=== PATIENT | female | born 2000 | race Two or more races ===

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

== ENCOUNTER 2018-12-07 19:58 | Emergency (ER) | payer OTHER ==
[2018-12-07 20:08] VITALS: BP 123/97
--- NOTE | 2018-12-07 20:59 | UC ---
Lower Extremity/Ankle HPI - HPI Summary HPI Summary: 18-year-old female presents with complaints of left ankle pain and swelling. States approximately 2 weeks ago she was descending some stairs into her ankle gave out on her and she came down on the ankle sideways causing a inversion injury. States she self treated herself for a sprained ankle and was having some improvement and then 5 days ago her ankle gave out on her again causing another inversion injury. She presents today for persistent pain and swelling to the lateral aspect of her left ankle. States she has been able to walk and bear weight on the ankle though with some discomfort. Has taken over-the- counter acetaminophen and iced the injury with some improvement in the symptoms. Denies any numbness or tingling. - History of Current Complaint Chief Complaint: UCLowerExtremity Stated Complaint: ANKLE INJURY Time Seen by Provider: 12/07/18 20:20 Hx Obtained From: Patient Hx Last Menstrual Period: November 09, 2018 Pain Intensity: 5 - Allergies/Home Medications Allergies/Adverse Reactions: Allergies Allergy/AdvReac Type Severity Reaction Status Date / Time No Known Allergies Allergy Verified 12/07/18 20:08 Home Medications: Home Medications NK [No Home Medications Reported] 12/07/18 [History Confirmed 12/07/18] PMH/Surg Hx/FS Hx/Imm Hx Previously Healthy: Yes Other History Of: Negative For: Anticoagulant Therapy - Surgical History Surgical History: None Surgery Procedure, Year, and Place: Appendectomy - Family History Known Family History: Positive: Cardiac Disease - grandmother and grandfather had CAD, HLD, grandfather had cardiomeagly, Hypertension - maternal grandmother and grandfather, Diabetes - maternal grandmother and grandfather, Other - maternal grandfather had CVA - Social History Occupation: Student Lives: With Family Alcohol Use: None Substance Use Type: None Smoking Status (MU): Never Smoked Tobacco - Immunization History Most Recent Influenza Vaccination: not this year Most Recent Pneumonia Vaccination: never Review of Systems All Other Systems Reviewed And Are Negative: Yes Constitutional: Positive: Negative Skin: Negative: Bruising Respiratory: Positive: Negative Cardiovascular: Positive: Negative Gastrointestinal: Positive: Negative Genitourinary: Positive: Negative Motor: Negative: Weakness Neurovascular: Negative: Decreased Sensation Musculoskeletal: Positive: Other: - See HPI Neurological: Positive: Negative Is Patient Immunocompromised?: No Physical Exam - Summary Physical Exam Summary: GENERAL APPEARANCE: Well developed, well nourished, alert and cooperative, and appears to be in no acute distress. CARDIAC: Normal S1 and S2. No S3, S4 or murmurs. Rhythm is regular. There is no peripheral edema, cyanosis or pallor. Extremities are warm and well perfused. Capillary refill is less than 2 seconds. Peripheral pulses intact. LUNGS: Clear to auscultation without rales, rhonchi, wheezing or diminished breath sounds. ABDOMEN: Positive bowel sounds. Soft, nondistended, nontender. No guarding or rebound. No masses or hepatosplenomegally. MUSKULOSKELETAL: Normal muscular development. Limping gait. EXTREMITIES: Tenderness and swelling over the left lateral malleolus without gross deformity or ecchymosis. No laxity noted. Circulation and sensation intact. SKIN: Skin normal color, texture and turgor with no lesions or eruptions. Triage Information Reviewed: Yes Vital Signs: Initial Vital Signs Temp 98.1 F 12/07/18 20:05 Pulse 100 12/07/18 20:05 Resp 16 12/07/18 20:05 BP 123/97 12/07/18 20:05 Pulse Ox 100 12/07/18 20:05 Vital Signs Reviewed: Yes Diagnostics - Radiology No standard instances Radiology Interpretation Completed By: ED Physician - No fracture or dislocation. Lower Extremity Course/Dx - Course Course Of Treatment: 18-year-old female presents with complaints of left ankle pain and swelling. States approximately 2 weeks ago she was descending some stairs into her ankle gave out on her and she came down on the ankle sideways causing a inversion injury. States she self treated herself for a sprained ankle and was having some improvement and then 5 days ago her ankle gave out on her again causing another inversion injury. She presents today for persistent pain and swelling to the lateral aspect of her left ankle. States she has been able to walk and bear weight on the ankle though with some discomfort. Has taken over-the- counter acetaminophen and iced the injury with some improvement in the symptoms. Denies any numbness or tingling. Afebrile. Vital signs stable. Patient had tenderness and swelling over the left lateral malleolus without gross deformity or ecchymosis. No laxity noted. Circulation and sensation intact. Exam was unremarkable. My preliminary reading of the ankle x-ray showed no acute fracture or dislocation. Will treat for a left ankle sprain. Patient was placed in a CAM boot by the RN. Circulation sensation were intact pre-and post-application. Recommending weightbearing as tolerated, over-the- counter analgesics, and RICE. She is to follow-up with orthopedic surgery in 5- 7 days for evaluation and treatment. Anticipatory guidance and warning symptoms were reviewed with the patient. Verbalizes understanding and agrees with plan of care. - Differential Dx/Diagnosis Differential Diagnosis/HQI/PQRI: Dislocation, Fracture (Closed), Sprain Provider Diagnosis: Left ankle sprain Discharge - Sign-Out/Discharge Documenting (check all that apply): Patient Departure All imaging exams completed and their final reports reviewed: No - Discharge Plan Condition: Stable Disposition: HOME Patient Education Materials: Ankle Sprain (ED) Referrals: Andres Smith NP [Primary Care Provider] - Sarah Rivera MD [Medical Doctor] - 5 Days Additional Instructions: The x-ray performed in the clinic today showed no evidence of a fracture. The x- ray will be reviewed by the radiologist tomorrow and we will contact you if they see anything that changes the plan of care. Rest the ankle as much as possible. You may walk and bear weight as tolerated. Use the CAM boot that was provided you. You may remove to shower and sleep but should wear at all other times. Apply ice to the affected area for 15-20 minutes at least 4 times a day to help with the pain and swelling. Elevate the leg to help reduce swelling. Take acetaminophen (Tylenol) or ibuprofen (Advil, Motrin) according to directions as needed for pain. Follow up with orthopedic surgery in 5-7 days for further evaluation and treatment. Seek immediate medical attention if you have severe pain not managed with pain medication, you are unable to walk or bear any weight, develop numbness or tingling in the foot or toes, or have any worsening of symptoms. - Billing Disposition and Condition Condition: STABLE Disposition: Home
--- NOTE | 2018-12-08 08:10 | UC ---
- Progress Note Progress Note: Reviewed imaging notable for ankle x-ray shows concern for ligamentous injury but no fracture. Please advise patient that x-rays negative for fracture but is concerning for injury to the ligaments. She should follow up with her primary care doctor or sports medicine. - EKG/XRAY/CT XRAY: ankle - Patient Name: BENITO GATICA Medical Record#: [id number] Ordering Physician: Sukhdev Gordillo NP Acct.#: [id number] : 2000 Age: 18 Sex: F Location: [facility] Exam Date: 12/07/182023 ADM Status: DEP ER Order Information : ANKLE LEFT 3+VWS Accession Number: [id number] CPT: 36099 Indication: Lateral LEFT ankle pain following inversion injury. Comparison: No relevant prior exams available on the [facility] PACS for comparison. Technique: AP, mortise, and lateral views LEFT ankle. REPORT AND IMPRESSION: #. Lateral soft tissue swelling and evidence for talocrural joint effusion. Negative for fracture, osteochondral lesion, or articular malalignment. Preserved joint spaces. Consider lateral supporting ligament injury. 1 of Course/Dx - Diagnoses Provider Diagnoses: Left ankle sprain Discharge - Sign-Out/Discharge Documenting (check all that apply): Post-Discharge Follow Up All imaging exams completed and their final reports reviewed: Yes - Discharge Plan Condition: Stable Disposition: HOME Patient Education Materials: Ankle Sprain (ED) Referrals: Andres Smith NP [Primary Care Provider] - Sarah Rivera MD [Medical Doctor] - 5 Days Additional Instructions: The x-ray performed in the clinic today showed no evidence of a fracture. The x- ray will be reviewed by the radiologist tomorrow and we will contact you if they see anything that changes the plan of care. Rest the ankle as much as possible. You may walk and bear weight as tolerated. Use the CAM boot that was provided you. You may remove to shower and sleep but should wear at all other times. Apply ice to the affected area for 15-20 minutes at least 4 times a day to help with the pain and swelling. Elevate the leg to help reduce swelling. Take acetaminophen (Tylenol) or ibuprofen (Advil, Motrin) according to directions as needed for pain. Follow up with orthopedic surgery in 5-7 days for further evaluation and treatment. Seek immediate medical attention if you have severe pain not managed with pain medication, you are unable to walk or bear any weight, develop numbness or tingling in the foot or toes, or have any worsening of symptoms. - Billing Disposition and Condition Condition: STABLE Disposition: Home
== END 2018-12-07 21:20 | disposition home or self-care (01) ==
LOC: UCEAST 19:58
DX: S93.402A Sprain of unspecified ligament of left ankle, initial encounter (principal); W10.9XXA Fall (on) (from) unspecified stairs and steps, initial encounter; Y92.9 Unspecified place or not applicable
CPT/HCPCS: 99212; G0463

== ENCOUNTER 2018-12-22 16:49 | Emergency (ER) | payer OTHER ==
[2018-12-22 17:04] VITALS: BP 107/73
--- NOTE | 2018-12-22 17:47 | ED ---
HPI Chest Pain - HPI Summary HPI Summary: 18 yr old female with the complaint of chest pain, right side, burning quality, 6/10, worse with deep breath. She denies SOB. She has not been coughing. She has not had fever or chills. She has no other complaints. - History of Current Complaint Chief Complaint: UCChestPain Time Seen by Provider: 12/22/18 17:17 Hx Last Menstrual Period: 1 week Tuesday 12/19 Pain Intensity: 6 - Additional Pertinent History Primary Care Physician: VIC - Allergy/Home Medications Allergies/Adverse Reactions: Allergies Allergy/AdvReac Type Severity Reaction Status Date / Time No Known Allergies Allergy Verified 12/22/18 17:04 PMH/Surg Hx/FS Hx/Imm Hx Endocrine/Hematology History: Denies: Hx Anticoagulant Therapy, Hx Bone Marrow Disease, Hx Diabetes, Hx Sickle Cell Disease, Hx Thyroid Disease, Hx Anemia Cardiovascular History: Denies: Hx Hypertension, Hx Pacemaker/ICD Respiratory History: Reports: Hx Asthma Denies: Hx Chronic Obstructive Pulmonary Disease (COPD) GI History: Denies: Other GI Disorders History: Reports: Other Problems/Disorders - history of ovarian cyst Denies: Hx Kidney Stones, Hx Renal Disease Sensory History: Denies: Hx Contacts or Glasses, Hx Hearing Aid Opthamlomology History: Denies: Hx Contacts or Glasses Neurological History: Denies: Hx Dementia, Hx Seizures Psychiatric History: Denies: Hx Substance Abuse - Surgical History Surgery Procedure, Year, and Place: Appendectomy - Immunization History Date of Tetanus Vaccine: utd per family Date of Influenza Vaccine: denies Infectious Disease History: No Infectious Disease History: Denies: Hx Hepatitis, Hx Human Immunodeficiency Virus (HIV), Traveled Outside the [place] in Last 30 Days - Family History Known Family History: Positive: None, Cardiac Disease - grandmother and grandfather had CAD, HLD, grandfather had cardiomeagly, Hypertension - maternal grandmother and grandfather, Diabetes - maternal grandmother and grandfather, Other - maternal grandfather had CVA - Social History Occupation: Employed Full-time Alcohol Use: None Substance Use Type: Reports: None Smoking Status (MU): Never Smoked Tobacco Review of Systems Constitutional: Negative Positive: Chest Pain All Other Systems Reviewed And Are Negative: Yes Physical Exam Triage Information Reviewed: Yes Vital Signs On Initial Exam: Initial Vitals Temp Pulse Resp BP Pulse Ox 99.2 F 76 16 107/73 100 12/22/18 16:59 12/22/18 16:59 12/22/18 16:59 12/22/18 16:59 12/22/18 16:59 Vital Signs Reviewed: Yes Appearance: Positive: Well-Appearing, No Pain Distress Skin: Positive: Warm, Skin Color Reflects Adequate Perfusion Head/Face: Positive: Normal Head/Face Inspection Eyes: Positive: EOMI ENT: Positive: Normal ENT inspection Neck: Positive: Nontender Respiratory/Lung Sounds: Positive: Clear to Auscultation, Breath Sounds Present Cardiovascular: Positive: RRR. Negative: Murmur Abdomen Description: Negative: Distended Musculoskeletal: Positive: Strength/ROM Intact. Negative: Edema Left, Edema Right Neurological: Positive: Sensory/Motor Intact, Alert, Oriented to Person Place, Time, CN Intact II-III, Normal Gait, Speech Normal Diagnostics - Vital Signs Vital Signs Temp Pulse Resp BP Pulse Ox 12/22/18 16:59 99.2 F 76 16 107/73 100 - Laboratory Lab Statement: Any lab studies that have been ordered have been reviewed, and results considered in the medical decision making process. - EKG 12/22/2018 Cardiac Rate: NL EKG Rhythm: Sinus Rhythm ST Segment: Normal Ectopy: None Chest Pain Course/Dx - Course Course Of Treatment: 18 yr old with pleuritic chest pain. She signed out AMA refusal of ambulance transfer to hospital. RIsk of PE. She is going to ambulance. - Diagnoses Provider Diagnoses: Pleuritic chest pain Discharge - Sign-Out/Discharge Documenting (check all that apply): Patient Departure All imaging exams completed and their final reports reviewed: No Studies - Discharge Plan Condition: Good Disposition: AGAINST MEDICAL ADVICE Patient Education Materials: Chest Pain (ED) Referrals: Andres Smith NP [Primary Care Provider] - 2 Days - Billing Disposition and Condition Condition: GOOD Disposition: Against Medical Advice
== END 2018-12-22 17:45 | disposition left against medical advice (07) ==
LOC: UCEAST 16:49
DX: R07.89 Other chest pain (principal); J45.909 Unspecified asthma, uncomplicated
CPT/HCPCS: 93005; 99212; G0463

== ENCOUNTER 2018-12-22 18:05 | Emergency (ER) | payer OTHER ==
[2018-12-22 19:17] LABS: ABS Lymphocytes 1.7 10^3/ul (1.0-4.8); ABS Monocytes 0.4 10^3/ul (0-0.8); ABS Neutrophils 4.3 10^3/ul (1.5-7.7); Eosinophil % 0.7 %; Hematocrit 38 % (35-47); Hemoglobin 13.3 g/dL (12.0-16.0); Lymphocyte % 26.8 %; Mean Corpuscular HGB Conc 35 g/dL (31-36); Mean Corpuscular Hemoglobin 32 pg (27-31); Mean Corpuscular Volume 91 fL (80-97); Mean Platelet Volume 10.4 fL (7.4-10.4); Nucleated Red Blood Cells % 0.1; Platelet Count 243 10^3/uL (150-450); Red Blood Count 4.18 10^6 /uL (3.70-4.87); Red Cell Distribution Width 12 % (10-15); White Blood Count 6.5 10^3/uL (3.5-10.8)
[2018-12-22 19:22] LABS: INR 1.12 (0.82-1.09)
[2018-12-22 19:31] LABS: Albumin 4.6 g/dL (3.2-5.2); Albumin/Globulin Ratio 1.7 (1-3); BUN/Creatinine Ratio 12.2 (8-20); Calcium 9.4 mg/dL (8.6-10.3); EGFR African American 107.5 (>60); EGFR Non-African American 88.9 (>60); Globulin 2.7 g/dL (2-4); Potassium 3.6 mmol/L (3.5-5.0); Total Bilirubin 0.5 mg/dL (0.2-1.0); Total Protein 7.3 g/dL (6.4-8.9)
--- NOTE | 2018-12-22 22:05 | ED ---
Abdominal Pain/Female - HPI Summary HPI Summary: The patient is a 18 y/o presenting to [facility] with a chief complaint of sudden onset epigastric burning today with previous similar episodes. 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 The burning is aggravated with exertion and alleviated by rest. She denies any nausea, vomiting, diarrhea, dysuria, hematuria, vaginal bleeding or discharge, cough, SOB, CP, or edema. Currently, the pain is rated 5/10 in severity. She states she has eaten pizza recently but usually eats well including meals of chicken, rice, and beans. She doesnt wake up with a sour taste in the mouth. No contraceptives. PMHx: asthma, appendectomy , ovarian cyst. Former vaporizer smoker, no EtOH, no substance use. - History of Current Complaint Chief Complaint: EDChestWallPain Stated Complaint: CHEST PAIN PER PT Time Seen by Provider: 12/22/18 21:22 Hx Obtained From: Patient Hx Last Menstrual Period: 1 week Tuesday 12/19 Onset/Duration: Sudden Onset, Lasting Hours, Still Present Timing: Hours Severity Initially: Moderate Severity Currently: Moderate Pain Intensity: 5 Pain Scale Used: 0-10 Numeric Location: Epigastric Radiates: No Character: Burning Aggravating Factor(s): Other: - bending over, exertion Alleviating Factor(s): Other: - rest Associated Signs and Symptoms: Positive: Other: - NEGATIVE: SOB, edema. Negative: Cough, Chest Pain, Decreased Appetite, Vaginal Bleeding, Vaginal Discharge, Nausea, Vomiting, Diarrhea Allergies/Adverse Reactions: Allergies Allergy/AdvReac Type Severity Reaction Status Date / Time No Known Allergies Allergy Verified 12/22/18 17:04 PMH/Surg Hx/FS Hx/Imm Hx Endocrine/Hematology History: Denies: Hx Anticoagulant Therapy, Hx Bone Marrow Disease, Hx Diabetes, Hx Sickle Cell Disease, Hx Thyroid Disease, Hx Anemia Cardiovascular History: Denies: Hx Hypertension, Hx Pacemaker/ICD Respiratory History: Reports: Hx Asthma Denies: Hx Chronic Obstructive Pulmonary Disease (COPD) GI History: Denies: Other GI Disorders History: Reports: Other Problems/Disorders - history of ovarian cyst Denies: Hx Kidney Stones, Hx Renal Disease Sensory History: Denies: Hx Contacts or Glasses, Hx Hearing Aid Opthamlomology History: Denies: Hx Contacts or Glasses Neurological History: Denies: Hx Dementia, Hx Seizures Psychiatric History: Denies: Hx Substance Abuse - Surgical History Surgical History: Yes Surgery Procedure, Year, and Place: Appendectomy - Immunization History Date of Tetanus Vaccine: utd per family Date of Influenza Vaccine: denies Infectious Disease History: No Infectious Disease History: Denies: Hx Hepatitis, Hx Human Immunodeficiency Virus (HIV), Traveled Outside the [place] in Last 30 Days - Family History Known Family History: Positive: Cardiac Disease - grandmother and grandfather had CAD, HLD, grandfather had cardiomeagly, Hypertension - maternal grandmother and grandfather, Diabetes - maternal grandmother and grandfather, Other - maternal grandfather had CVA - Social History Alcohol Use: None Hx Substance Use: No Substance Use Type: Reports: None Hx Tobacco Use: Yes Smoking Status (MU): Former Smoker Type: eCigarettes Review of Systems Negative: Chest Pain Negative: Shortness Of Breath, Cough Positive: Abdominal Pain - epigastric burning. Negative: Vomiting, Diarrhea, Nausea Positive: other - NEGATIVE: vaginal bleeding. Negative: dysuria, discharge, hematuria Negative: Edema All Other Systems Reviewed And Are Negative: Yes Physical Exam - Summary Physical Exam Summary: Constitutional: Well-developed, Well-nourished, Alert. (-) Distressed Skin: Warm, Dry HENT: Normocephalic; Atraumatic Eyes: Conjunctiva normal Neck: Musculoskeletal ROM normal neck. (-) JVD, (-) Stridor, (-) Tracheal deviation Cardio: Rhythm regular, rate normal, Heart sounds normal; Intact distal pulses; The pedal pulses are 2+ and symmetric. Radial pulses are 2+ and symmetric. Pulmonary/Chest wall: Effort normal. (-) Respiratory distress, (-) Wheezes, (-) Rales Abd: Laparoscopic scars on the umbilicus, subprapubic region, and epigastrium, All well-healed, Soft, (-) tenderness, (-) Distension, (-) Guarding, (-) Rebound Musculoskeletal: (-) Edema Neuro: Alert, Oriented x3 Psych: Mood and affect Normal Triage Information Reviewed: Yes Vital Signs On Initial Exam: Initial Vitals Temp Pulse Resp BP Pulse Ox 98.8 F 64 20 125/66 98 12/22/18 18:12 12/22/18 18:12 12/22/18 18:12 12/22/18 18:12 12/22/18 18:12 Vital Signs Reviewed: Yes Diagnostics - Vital Signs Vital Signs Temp Pulse Resp BP Pulse Ox 12/22/18 20:15 98.8 F 60 16 124/70 99 12/22/18 18:12 98.8 F 64 20 125/66 98 - Laboratory Lab Results: Lab Results 12/22/18 12/22/18 12/22/18 Range/Units 19:07 19:07 19:07 WBC 6.5 (3.5-10.8) 10^3/uL RBC 4.18 (3.70-4.87) 10^6 /uL Hgb 13.3 (12.0-16.0) g/dL Hct 38 (35-47) % MCV 91 (80-97) fL MCH 32 H (27-31) pg MCHC 35 (31-36) g/dL RDW 12 (10-15) % Plt Count 243 (150-450) 10^3/uL MPV 10.4 (7.4-10.4) fL Neut % (Auto) 66.4 % Lymph % (Auto) 26.8 % [place] % (Auto) 5.5 % Eos % (Auto) 0.7 % Baso % (Auto) 0.6 % Absolute Neuts (auto) 4.3 (1.5-7.7) 10^3/ul Absolute Lymphs (auto) 1.7 (1.0-4.8) 10^3/ul Absolute Monos (auto) 0.4 (0-0.8) 10^3/ul Absolute Eos (auto) 0.0 (0-0.6) 10^3/ul Absolute Basos (auto) 0.0 (0-0.2) 10^3/ul Absolute Nucleated RBC 0.0 10^3/ul Nucleated RBC % 0.1 INR (Anticoag Therapy) 1.12 H (0.82-1.09) Sodium 138 (135-145) mmol/L Potassium 3.6 (3.5-5.0) mmol/L Chloride 105 (101-111) mmol/L Carbon Dioxide 26 (22-32) mmol/L Anion Gap 7 (2-11) mmol/L BUN 10 (6-24) mg/dL Creatinine 0.82 (0.51-0.95) mg/dL Est GFR ( Amer) 107.5 (>60) Est GFR (Non-Af Amer) 88.9 (>60) BUN/Creatinine Ratio 12.2 (8-20) Glucose 95 (70-100) mg/dL Calcium 9.4 (8.6-10.3) mg/dL Total Bilirubin 0.50 (0.2-1.0) mg/dL AST 18 (13-39) U/L ALT 23 (7-52) U/L Alkaline Phosphatase 56 (34-104) U/L Troponin I 0.00 (<0.04) ng/mL Total Protein 7.3 (6.4-8.9) g/dL Albumin 4.6 (3.2-5.2) g/dL Globulin 2.7 (2-4) g/dL Albumin/Globulin Ratio 1.7 (1-3) Result Diagrams: 12/22/18 19:07 12/22/18 19:07 Lab Statement: Any lab studies that have been ordered have been reviewed, and results considered in the medical decision making process. - EKG 1808 Cardiac Rate: NL - 66 bpm EKG Rhythm: Sinus Rhythm Summary of EKG Findings: NSR at 66 bpm. No ischemic changes. No STEMI. Re-Evaluation - Re-Evaluation First Eval Re-Evaluation Time: 22:05 Change: Improved Comment: Maalox improved pain. Discharge discusssed. Abdominal Pain Fem Course/Dx - Course Course Of Treatment: Patient is a 18 y/o F with cc of acute subacute epigastric burning without cough, SOB, CP, nausea, vomiting, diarrhea, urinary symptoms, vaginal bleeding or discharge, or extremity edema with previous episodes and a worsening episode today. Upon physical exam, the patient exhibits laparoscopic scars at the umbilicus, suprapubic region, and epigastrium that are all well- healed, and there is no abdominal tenderness. In the ED course, the patient is administered Maalox and Zantac. Blood work without acute abnormalities. She will be discharged home with rx for Zantac and PCP follow up. She is advised to refrain from eating fattier or greasy foods and to eat long enough before laying down to prevent symptoms. She agrees with this plan. She is diagnosed with epigastric pain and possible reflux. - Diagnoses Provider Diagnoses: Epigastric pain, Acid reflux Discharge - Sign-Out/Discharge Documenting (check all that apply): Patient Departure - Patient will be discharged home. Patient Received Moderate/Deep Sedation with Procedure: No - Discharge Plan Condition: Good Disposition: HOME Prescriptions: Ranitidine TAB (NF) [Zantac TAB (NF)] 150 mg PO BID #30 tab Patient Education Materials: Diet for Stomach Ulcers and Gastritis (ED), Abdominal Pain (ED) Referrals: Andres Smith, ISSUING OPERATOR [Primary Care Provider] - - Billing Disposition and Condition Condition: GOOD Disposition: Home - Attestation Statements Document Initiated by Betye: Yes Documenting Scribe: Lora Figueroa Provider For Whom Doug is Documenting (Include Credential): Dr. Carlos Huntley MD Scribe Attestation: Lora Escamilla scribed for Dr. Carlos Huntley MD on 12/23/18 at 0651. Scribe Documentation Reviewed: Yes Provider Attestation: The documentation as recorded by the Lora austin accurately reflects the service I personally performed and the decisions made by me, Dr. Carlos Huntley MD Status of Scrthania Document: Viewed
[2018-12-22] MEDS ORDERED: Al Hydrox/Mg Hydrox/Simet LIQ* 30 ML UDC PO ONE (22:09)
[2018-12-22 22:20] VITALS: BP 122/56
== END 2018-12-22 22:20 | disposition home or self-care (01) ==
LOC: ED 18:05
DX: K21.9 Gastro-esophageal reflux disease without esophagitis (principal); Z87.891 Personal history of nicotine dependence
CPT/HCPCS: 36415; 80053; 84484; 85025; 85610; 93005; 99283; A9270-GY